=== PATIENT | male | born 1955 | race Caucasian/White ===

== ENCOUNTER 2025-05-18 11:20 | Emergency (ER) | payer OTHER ==
[~2025-05-18] VITALS: Ht 182.9 cm; Wt 110.5 kg
[2025-05-18] MEDS ORDERED: TRIA37.577 PO (11:39)
[2025-05-18] MEDS ORDERED: LISI30TA4 PO (11:39)
[2025-05-18] MEDS ORDERED: METF-839 PO (11:39)
[2025-05-18] MEDS ORDERED: ECOT81TA5 PO (11:39)
[2025-05-18] MEDS ORDERED: ROSU40TA81 PO (11:39)
[2025-05-18] MEDS ORDERED: SYNJ1TAB3 PO (11:39)
[2025-05-18] MEDS ORDERED: CARV25TA PO (11:39)
[2025-05-18 12:30] LABS: BASO # 0.1 10^3/uL (0.0-0.2); BASO % 0.6 % (0.0-1.0); EOS # 0.7 10^3/uL (0.0-0.5); EOS % 9.2 % (0.0-3.0); LYMPH # 1.3 10^3/uL (1.5-5.0); LYMPH % 16.1 % (24.0-44.0); MONO # 0.8 10^3/uL (0.0-0.8); MONO % 9.9 % (2.0-8.0); NEUTROPHILS # 5.1 10^3/uL (1.5-8.5); NEUTROPHILS % 63.7 % (36.0-66.0); PLATELET COUNT, AUTOMATED 167 10^3/uL (150-450)
[2025-05-18 13:04] LABS: ALT/SGPT 26.0 U/L (7.0-40); AST/SGOT 24.0 U/L (<34); CALCIUM LEVEL 9.1 MG/DL (8.3-10.6); CARBON DIOXIDE LEVEL 28.0 MMOL/L (20-31); CHLORIDE LEVEL 102.0 MMOL/L (98-107); CREATININE FOR GFR 1.35 MG/DL (0.70-1.30); GLOMERULAR FILTRATION RATE 56.1 (>42); POTASSIUM SERUM 4.5 MMOL/L (3.5-5.1); SODIUM LEVEL 139.0 MMOL/L (136-145)
[2025-05-18 13:17] LABS: OSMOLALITY SERUM 303.0 MOSM/KG (280-301)
[2025-05-18] MEDS ORDERED: METF-838 PO (13:35)
[2025-05-18] MEDS ORDERED: HOME MED LIST COMPLETE! XX SCH (13:35)
[2025-05-18] MEDS: MAG SULF 1GM/100ML (MAG RUN) 1 GM in IV 1 EA IV ONE (13:49)
[2025-05-18] MEDS: NS 500 ML IV ONE (13:50)
[2025-05-18 15:21] VITALS: BP 139/72; TEMP 97.3; O2SAT 97
== END 2025-05-18 15:25 | disposition home or self-care (01) ==
LOC: M ED 11:20
DX: R42 Dizziness and giddiness (principal); I44.4 Left anterior fascicular block; I45.10 Unspecified right bundle-branch block; I45.81 Long QT syndrome; E11.9 Type 2 diabetes mellitus without complications; I10 Essential (primary) hypertension; G47.33 Obstructive sleep apnea (adult) (pediatric); Z79.1 Long term (current) use of non-steroidal anti-inflammatories (NSAID); Z79.84 Long term (current) use of oral hypoglycemic drugs; Z79.899 Other long term (current) drug therapy
CPT/HCPCS: 70450; 80048; 80076; 83735; 83930; 84443; 85025; 93005; 93041; 94760; 96365; 96366; 99285; J3475